=== PATIENT | male | born 1985 | race Caucasian/White ===

== ENCOUNTER 2017-07-26 06:31 | Day surgery (SDC) | payer OTHER ==
[~2017-07-26 06:31] MED LIST: Lactated Ringers 1,000 ML IV SCH; ceFAZolin 2 GM in Premix Bag 1 BAG IV SCH
[2017-07-26] MEDS ORDERED: Lidocaine 2% 5 ML SDV ONE (07:13)
[2017-07-26] MEDS ORDERED: Propofol 200 MG/20 ML SDV ONE ×2 (07:14→09:20)
[2017-07-26] MEDS ORDERED: fentaNYL 100 MCG/2 ML SDV ONE (07:14)
[2017-07-26] MEDS ORDERED: Midazolam 1 MG/ML 2 ML SDV ONE (07:15)
[2017-07-26] MEDS ORDERED: Ketorolac 30 MG/ML SDV ONE (07:18)
[2017-07-26] MEDS ORDERED: Ondansetron 4 MG/2 ML SDV ONE (07:18)
[2017-07-26] MEDS ORDERED: Bupivacaine 0.5% 10 ML SDV ONE (07:25)
[2017-07-26] MEDS ORDERED: Bupivacaine 0.25%/EPINEPHrine 1:200,000 10 ML SDV ONE (07:25)
[2017-07-26] MEDS ORDERED: Acetaminophen/HYDROcodone 325-10 MG Tab PO PRN (08:00)
[2017-07-26] MEDS ORDERED: Ketorolac 10 MG Tab PO PRN (08:00)
--- NOTE | 2017-07-26 08:03 | PCM.PREANE ---
Preanesthetic Assessment - Anesthesia/Transfusion/Family Hx Anesthesia History: Prior Anesthesia Without Reaction Transfusion History: No Prior Transfusion(s) - Review of Systems General: No Symptoms Pulmonary: No Symptoms Cardiovascular: No Symptoms Gastrointestinal: No Symptoms Neurological: No Symptoms Other: Reports: None - Physical Assessment NPO Status Date: 07/25/17 NPO Status Time: 14:00 O2 Sat by Pulse Oximetry: 95 Respiratory Rate: 16 Vital Signs: Last Vital Signs Temp 37.0 C 07/26/17 06:38 Pulse 94 07/26/17 06:38 Resp 16 07/26/17 06:38 BP 120/85 07/26/17 06:38 Pulse Ox 95 07/26/17 06:38 Height: 1.7 m Weight: 90.718 kg ASA Class: 2 Mental Status: Alert & Oriented x3 Dentition: Reports: Normal Dentition Thyro-Mental Finger Breadths: 4 Mouth Opening Finger Breadths: 3 ROM/Head Extension: Full Lungs: Clear to Auscultation Cardiovascular: Regular Rate, Regular Rhythm - Allergies Allergies/Adverse Reactions: Allergies Allergy/AdvReac Type Severity Reaction Status Date / Time No Known Allergies Allergy Verified 07/19/17 12:59 - Acknowledgements Anesthesia Type Planned: General Anesthesia, Regional Block Pt an Appropriate Candidate for the Planned Anesthesia: Yes Alternatives and Risks of Anesthesia Discussed w Pt/Guardian: Yes Pt/Guardian Understands and Agrees with Anesthesia Plan: Yes Additional Comments: Discussed placement of interscalene block for post operative pain control including the possibility of the block being inadequate, he indicated his understanding and says he like to go ahead. PreAnesthesia Questionnaire HEENT History: Cardiovascular History: Reports: None Respiratory History: Reports: None Gastrointestinal History: Reports: Irritable Bowel Syndrome Genitourinary History: Reports: Renal Calculus Musculoskeletal History: Reports: Arthritis, Back Pain, Chronic, Fracture Other Musculoskeletal History: all in lower back Neurological History: Reports: Concussion Psychiatric History: Reports: PTSD Endocrine/Metabolic History: Reports: Obesity/BMI 30+ Dermatologic History: Reports: None - Infectious Disease History Infectious Disease History: Reports: None - Past Surgical History Cardiovascular Surgical History: Reports: None Male Surgical History: Reports: Lithotripsy (ESWL), Vasectomy Musculoskeletal Surgical History: Reports: Arthroscopic Knee, Other (See Below) Other Musculoskeletal Surgeries/Procedures:: has had "ablation" of arthritis in lower back, hx of left knee arthroscopy - SUBSTANCE USE Smoking Status *Q: Current Every Day Smoker Tobacco Use Within Last Twelve Months: Cigarettes Recreational Drug Use History: No - HOME MEDS Home Medications: Home Meds Meloxicam [Mobic] 15 mg PO DAILY 07/19/17 [History] oxyCODONE 5 mg PO ASDIRECTED PRN 07/19/17 [History] - CURRENT (IN HOUSE) MEDS Current Meds: Current Medications Hydrocodone Bitart/Acetaminophen ([place] 325-10 Mg) 1 - 2 tab PO Q4H PRN PRN Reason: Pain Cefazolin Sodium/Dextrose 2 gm (/ Premix) 50 mls @ 100 mls/hr IV ONCALL RADHA Lactated Ringer's (Ringers, Lactated) 1,000 mls @ 100 mls/hr IV ASDIRECTED RADHA Last Admin: 07/26/17 06:50 Dose: 100 mls/hr Ketorolac Tromethamine (Toradol) 10 mg PO Q6H PRN PRN Reason: Pain Stop: 07/31/17 08:01 Discontinued Medications Bupivacaine HCl (Sensorcaine-Mpf 0.5%) Confirm Administered Dose 20 ml .ROUTE .STK-MED ONE Stop: 07/26/17 07:26 Bupivacaine HCl/Epinephrine Bitart (Marcaine 0.25%/Epinephrine 1:200,000) Confirm Administered Dose 20 ml .ROUTE .STK-MED ONE Stop: 07/26/17 07:26 Fentanyl (Sublimaze) Confirm Administered Dose 300 mcg .ROUTE .STK-MED ONE Stop: 07/26/17 07:15 Ketorolac Tromethamine (Toradol) Confirm Administered Dose 30 mg .ROUTE .STK- MED ONE Stop: 07/26/17 07:19 Lidocaine (Xylocaine-Mpf 2%) Confirm Administered Dose 10 ml .ROUTE .STK-MED ONE Stop: 07/26/17 07:14 Midazolam HCl (Versed 1 Mg/Ml) Confirm Administered Dose 2 mg .ROUTE .STK-MED ONE Stop: 07/26/17 07:16 Ondansetron HCl (Zofran) Confirm Administered Dose 4 mg .ROUTE .STK-MED ONE Stop: 07/26/17 07:19 Propofol (Diprivan 20 Ml) Confirm Administered Dose 400 mg .ROUTE .STK-MED ONE Stop: 07/26/17 07:15
[2017-07-26] MEDS ORDERED: HYDROmorphone 2 MG/ML Syringe ONE (08:49)
--- NOTE | 2017-07-26 09:47 | PCM.OPNOTE ---
- General Post-Op/Procedure Note Date of Surgery/Procedure: 07/26/17 Operative Procedure(s): R shoulder arthroscopy with SAD, debridement of subscapularis Post-Op Diagnosis: R shoulder impingement, partial tear subscapularis Anesthesia Technique: General ET Tube, Regional Block Primary Surgeon: Cynthia Casanova Welding Instructor: Walt Monet in mLs: 5 Condition: Good Free Text/Narrative:: #[id number]
[2017-07-26] MEDS: fentaNYL 100 MCG/2 ML SDV IVPUSH PRN ×2 (10:33→10:41)
--- NOTE | 2017-07-26 11:36 | PCM.SN ---
- Free Text/Narrative Note: At the end of the procedure, a right iter-scalene block was done after a betadine prep x 3 using a stimuplex needle set to 0.6 obtaining a biceps and forearm twitch. A 40 ml mix of 0.25% marcaiine with epinephrine 1:908100 (20) ml and (20 ) ml 0.5% plain marcainw was instilled for post operative pain control
[2017-07-26 12:47] VITALS: BP 152/87
--- NOTE | 2017-07-26 14:22 | OR ---
SURGEON: Cynthia Casanova MD DATE OF PROCEDURE: 07/26/2017 PREOPERATIVE DIAGNOSIS: Right shoulder impingement. POSTOPERATIVE DIAGNOSES: 1. Right shoulder impingement. 2. Right shoulder partial subscapularis tear. PROCEDURE: Right shoulder arthroscopy with: 1. Subacromial decompression with release of coracoacromial ligament and acromioplasty. 2. Limited debridement of partial subscapularis tear. NUTRITION PROGRAM INSTRUCTOR: Walt Monet PA-C. ANESTHESIA: General. ESTIMATED BLOOD LOSS: 5 mL. TOURNIQUET TIME: Zero minutes. COMPLICATIONS: None. DVT PROPHYLAXIS: PAS boots to bilateral lower extremities. IMPLANTS USED: None. BRIEF HISTORY: Alex is a 31-year-old male, who has had complaint of progressive right shoulder pain. He had failed conservative treatment. Due to his lack of response to conservative treatment, I did recommend surgical intervention. The risks and goals of procedure were discussed with the patient and were documented preoperatively. He agreed to proceed. DESCRIPTION OF PROCEDURE: The patient was properly identified and brought to the operating room. He was transferred from the OR cart and placed on the operating room table in supine position. General anesthesia was administered. After adequate anesthesia was obtained, he was placed in a beach-chair type position. His head was secured. Care was taken to pad all bony prominences. He had full range of motion at his shoulder. The right upper extremity was then prepped in standard fashion using ChloraPrep solution. It was then sterilely draped. A time-out was performed to ensure correct site and procedure. Preoperative antibiotics were given. The surgical site had been marked preoperatively. A marking pen was used to leni the bony prominences. Approximately 30 mL of normal saline was introduced into the glenohumeral joint. A posterior portal was established. Blunt trocar and cannula were introduced into the glenohumeral space. Camera, inflow, and outflow were assembled. The rotator interval showed mild synovitis. An anterior portal was established. The subscapularis was then probed. He had a very small tear along the superior aspect of the subscapularis. This was debrided with a shaver. The remainder of the subscapularis was intact. Its insertion was completely intact as well. No loose bodies were identified in the subscapularis recess. The anterior labrum was then visualized. No tearing was noted. The biceps was visualized. Its insertion onto the superior labrum was probed. It was found to be stable. The biceps was pulled into the joint and no fraying or synovitis was noted along the course of the tendon. The posterior labrum appeared intact as well. The glenoid and humeral head were inspected and no signs of articular damage were noted. The axillary pouch showed no loose bodies. The arm was then brought into an abducted and externally rotated position. The bare area was noted posteriorly. As I progressed forward, there was good insertion of the cuff. No partial tearing was noted. The arm was then brought back into a neutral position. The instruments were removed from the glenohumeral joint. The blunt trocar and cannula were introduced into the subacromial space. Again camera, inflow, and outflow were assembled. A lateral portal was then made. Shaver was inserted. An extensive bursectomy was performed. He did have a large amount of bursal tissue. The undersurface of the acromion was identified. This was cleared of soft tissue. He did have some impingement noted anteriorly. A 5.0 mm jorge was used to perform an acromioplasty, which provided good decompression of the subacromial space. The rotator cuff was then extensively probed following the bursectomy. No evidence of tearing or softening was noted. The instruments were then removed from the shoulder. The portal sites were closed with 3-0 nylon. Xeroform gauze was placed over the wound and a bulky dressing was applied. He was awakened. The case was turned over to the Anesthesia Department for placement of the interscalene block. KARLI / DAVID /[id number]
== END 2017-07-26 12:00 | disposition home or self-care (01) ==
LOC: MW.SDS 06:31
PROVIDERS: ATTEND Orthopaedic Surgery
DX: M75.41 Impingement syndrome of right shoulder (principal); S46.811A Strain of other muscles, fascia and tendons at shoulder and upper arm level, right arm, initial encounter; M19.90 Unspecified osteoarthritis, unspecified site; K58.9 Irritable bowel syndrome, unspecified; E66.9 Obesity, unspecified; F17.210 Nicotine dependence, cigarettes, uncomplicated; Z98.52 Vasectomy status; Z98.890 Other specified postprocedural states; Z79.899 Other long term (current) drug therapy; Z68.31 Body mass index [BMI] 31.0-31.9, adult
CPT/HCPCS: 29823; 29826; 88304; J1170; J1885; J2250; J2405; J3010; J7120; 01630; 64415; J2704